=== PATIENT | female | born 1995 | race Caucasian/White ===

== ENCOUNTER 2025-06-07 16:51 | Emergency (ER) | payer OTHER ==
[2025-06-07 17:44] LABS: Absolute Lymphocytes (CBC) 2.5 K/uL (0.7-4.9); Hematocrit 41.6 % (36.0-45.0); Hemoglobin 14.3 g/dL (12.0-15.0); MCH 31.1 pg (27.0-35.0); MCHC 34.4 g/dL (32.0-36.0); MCV 90.4 fL (80-100); MPV 7.5 fL (7.6-11.3); Nucleated RBC Absolute Count 0.0 (0-0); Nucleated Red Blood Cells % 0.0 % (0-0); RBC Red Blood Cell Count 4.60 M/uL (3.86-4.86); White Blood Count 10.80 thou/uL (4.3-10.9)
[2025-06-07 18:04] LABS: Anion Gap 8.5 mEq/L (5.0-15.0); BUN Blood Urea Nitrogen 14 mg/dL (7-18); Glucose Level 95 mg/dL (74-106); HCG, Quantitative > 1000 mIU/mL (1-3); Potassium 3.5 mEq/L (3.5-5.1)
--- NOTE | 2025-06-07 20:28 | RAD REPORT ---
EXAMINATION: US FIRST TRIMESTER TRANSVAGINAL WITH DOPPLER CLINICAL INDICATION: with pelvic pain TECHNIQUE: Real-time obstetrical ultrasonography of the maternal pelvis and first trimester was performed transvaginally. Color and spectral Doppler evaluation of the ovaries was performed. COMPARISON: No prior exam. FINDINGS: The uterus measures 9 x 6 x 6 cm.. A gestational sac within the endometrium not seen 3 cm fluid collection within the cervix. A pole/yolk sac not seen. Right ovary not seen secondary to overlying bowel gas. Left ovary normal in size and echotexture Right and left adnexa unremarkable No significant free fluid IMPRESSION: 3 cm fluid collection within the cervix may represent a blighted ovum with impending . . A le ss likely consideration is that this represents a cervical ectopic . Close follow-up recommended.
--- NOTE | 2025-06-07 20:29 | RAD REPORT ---
EXAMINATION: Pelvis Complete CLINICAL INDICATION: Pelvic pain. TECHNIQUE: Real-time ultrasonography of the pelvis was performed transabdominally.. Color and spectra l Doppler evaluation of the ovaries was performed. COMPARISON: No prior exam. FINDINGS: The uterus measures 9 x 6 x 6 cm.. A gestational sac within the endometrium not seen 3 cm fluid collection within the cervix. A pole/yolk sac not seen. Right ovary not seen secondary to overlying bowel gas. Left ovary normal in size and echotexture Right and left adnexa unremarkable No significant free fluid IMPRESSION: 3 cm fluid collection within the cervix may represent a blighted ovum with impending . . A le ss likely consideration is that this represents a cervical ectopic . Close follow-up recommended.
--- NOTE | 2025-06-07 20:56 | EDPHYS ---
Physician Documentation [facility] Name: Temo Bourgeois Age: 30 yrs Sex: Female : 1995 Arrival Date: 06/07/2025 Time: 16:51 Bed 12 Private MD: ED Physician Jayden Muhammad HPI: 06/07 16:57 This 30 yrs old Female presents to ER via Unassigned with complaints of Vaginal kb Bleeding. 16:57 Patient is a 30-year-old female who presents for vaginal bleeding. States she started kb spotting 4 days ago and the bleeding became heavy about 1 hour ago. Reports she is currently 11 weeks . LMP 03/19/2025. G2, . States her OB is Dr. Yun with [facility]. 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 - Infectious Disease History:: Denies. - Social history:: Smoking status: Patient/guardian denies using tobacco, Stopped _ months ago 2. ROS: 16:58 Constitutional: As per HPI kb Exam: 16:58 Constitutional: This is a well developed, well nourished patient who is awake, alert, kb and in no acute distress. Head/Face: Normocephalic, atraumatic. ENT: Moist Mucous membranes Respiratory: Respirations even and unlabored. No increased work of breathing. Talking in full sentences Abdomen/GI: Soft, non-tender. No distention Skin: Warm, dry with normal turgor. Normal color. MS/ Extremity: Pulses equal, no cyanosis. Neurovascular intact. Full, normal range of motion. Neuro: Awake and alert, GCS 15, oriented to person, place, time, and situation. Vital Signs: 16:56 BP 126 / 83; Pulse 89; Resp 17; Temp 97.8; Pulse Ox 100% on R/A; Weight 56.7 kg; Height dd2 5 ft. 4 in. ; Pain 6/10; 20:13 BP 124 / 64; Pulse 84; Resp 17; Pulse Ox 100% ; cp4 16:56 Body Mass Index 21.46 (56.70 kg, 162.56 cm) dd2 16:56 Pain Scale: Adult dd2 MDM: 16:54 Medical Screening Exam initiated kb 20:44 Data reviewed: vital signs, nurses notes. kb 20:44 Differential diagnosis: threatened Ab, inevitable Ab, complete Ab, ectopic . kb Counseling: I had a detailed discussion with the patient and/or guardian regarding the historical points, exam findings, and any diagnostic results supporting the discharge/admit diagnosis, lab results, radiology results, the need for outpatient follow up, an OB/Gyne specialist, to return to the emergency department if symptoms worsen or persist or if there are any questions or concerns that arise at home. ED course: Pt has follow up scheduled with OB on Monday. 06/07 16:57 Order name: Abo/rh Typing; Complete Time: 18:26 kb 06/07 16:57 Order name: Basic Metabolic Panel; Complete Time: 18:07 kb 06/07 16:57 Order name: CBC with Diff; Complete Time: 17:50 kb 06/07 16:57 Order name: Test, Urine; Complete Time: 17:55 kb 06/07 16:57 Order name: Quantitative Hcg; Complete Time: 18:07 kb 06/07 16:57 Order name: US Transvaginal Ob; Complete Time: 20:29 kb 06/07 18:33 Order name: US Pelvis Complete; Complete Time: 20:30 kb 06/07 16:57 Order name: IV Saline Lock; Complete Time: 17:21 kb 06/07 16:57 Order name: Labs collected and sent; Complete Time: 17:21 kb 06/07 16:57 Order name: NPO; Complete Time: 17:21 kb Administered Medications: No medications were administered Disposition Summary: 06/07/25 20:56 Discharge Ordered Notes: Location: Home kb Condition: Stable kb Diagnosis - Complete or unspecified spontaneous without complication kb Followup: kb - With: Emergency Department - When: As needed - Reason: Worsening of condition Followup: kb - With: Private Physician - When: 2 - 3 days - Reason: Recheck today's complaints, Continuance of care, Re-evaluation by your physician Discharge Instructions: - Discharge Summary Sheet kb - Miscarriage, [id number] kb Forms: - Medication Reconciliation Form kb - Antibiotic Education kb - Prescription Opioid Use kb - Patient Portal Instructions kb - Leadership Thank You Letter kb Addendum: 06/12/2025 07:02 Co-signature as Attending Physician, Jayden Muhammad MD I reviewed the patient's care r n provided by the Advanced Practice Provider and agree with the diagnosis and treatment plan. Signatures: Dispatcher [employer] EDMS Ava Lopez, AUTO SELF SERVICE STATION ATTENDANT-C AUTO SELF SERVICE STATION ATTENDANT-Ckb Jayden Muhammad MD MD rn DAVIS, DIANA, RN RN dd2 Corrections: (The following items were deleted from the chart) 06/07 16:58 16:58 ABO/RH TYPING+BB.LAB.BRZ ordered. EDMS EDMS 16:58 16:58 BASIC METABOLIC PANEL+C.LAB.BRZ ordered. EDMS EDMS 16:58 16:58 CBC+H.LAB.BRZ ordered. EDMS EDMS 16:58 16:58 Test, Urine+UC.LAB.BRZ ordered. EDMS EDMS 16:58 16:58 QUANTITATIVE HCG+C.LAB.BRZ ordered. EDMS EDMS 16:58 16:58 Transvaginal Ob+US.RAD.BRZ ordered. EDMS EDMS
--- NOTE | 2025-06-07 20:56 | ER ---
Nurse's Notes [facility] Name: Temo Bourgeois Age: 30 yrs Sex: Female : 1995 Arrival Date: 06/07/2025 Time: 16:51 Bed 12 Private MD: Diagnosis: Complete or unspecified spontaneous without complication Presentation: 06/07 16:56 Chief complaint: Patient states: SPOTTING SINCE MONDAY AND HEAVY BLEEDING X1 AND dd2 LOWER ABDOMINAL CRAMPING. EPORTS 11 WEEKS . Coronavirus screen: At this time, the client does not indicate any symptoms associated with coronavirus-19. Ebola Screen: No symptoms or risks identified at this time. Initial Sepsis Screen: Does the patient meet any 2 criteria? No. Patient's initial sepsis screen is negative. Does the patient have a suspected source of infection? No. Patient's initial sepsis screen is negative. Risk Assessment: Do you want to hurt yourself or someone else? Patient reports no desire to harm self or others. Onset of symptoms was June 04, 2025. 16:56 Method Of Arrival: Ambulatory dd2 16:56 Acuity: LIZANDRO 3 dd2 Triage Assessment: 17:00 General: Appears in no apparent distress. uncomfortable, Behavior is calm, cooperative, dd2 appropriate for age. Pain: Complains of pain in suprapubic area, right lower quadrant and left lower quadrant. : Reports cramping, in right in left lower quadrant(s) vaginal bleeding that is heavy flow. 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 - Infectious Disease History:: Denies. - Social history:: Smoking status: Patient/guardian denies using tobacco, Stopped _ months ago 2. Screenin:03 [facility] ED Fall Risk Assessment (Adult) History of falling in the last 3 months, af3 including since admission No falls in past 3 months (0 pts) Confusion or Disorientation No (0 pts) Intoxicated or Sedated No (0 pts) Impaired Gait No (0 pts) Mobility Assist Device Used No (0 pt) Altered Elimination No (0 pt) Score/Fall Risk Level 0 - 2 = Low Risk Oriented to surroundings, Maintained a safe environment, Educated pt \T\ family on fall prevention, incl call for assistance when getting out of bed. Abuse screen: Denies threats or abuse. Denies injuries from another. Nutritional screening: No deficits noted. Tuberculosis screening: No symptoms or risk factors identified. Assessment: 17:31 Reassessment: No changes from previously documented assessment. Patient and/or family ll1 updated on plan of care and expected duration. Pain level reassessed. Patient is alert, oriented x 3, equal unlabored respirations, skin warm/dry/pink. 18:39 General: Appears in no apparent distress. comfortable, well groomed, well developed, af3 Behavior is calm, cooperative, appropriate for age. Neuro: Level of Consciousness is awake, alert, obeys commands, Oriented to person, place, time, situation, Appropriate for age. Cardiovascular: Patient's skin is warm and dry. Respiratory: Airway is patent Respiratory effort is even, unlabored, Respiratory pattern is regular, symmetrical. Vital Signs: 16:56 BP 126 / 83; Pulse 89; Resp 17; Temp 97.8; Pulse Ox 100% on R/A; Weight 56.7 kg; Height dd2 5 ft. 4 in. ; Pain 6/10; 20:13 BP 124 / 64; Pulse 84; Resp 17; Pulse Ox 100% ; cp4 16:56 Body Mass Index 21.46 (56.70 kg, 162.56 cm) dd2 16:56 Pain Scale: Adult dd2 ED Course: 16:53 Patient arrived in ED. am2 16:54 Ava Lopez FNP-C is PHCP. kb 16:54 Jayden Muhammad MD is Attending Physician. kb 17:00 Triage completed. dd2 17:00 Arm band placed on right wrist. dd2 17:20 Flakita Delgadillo, CK is Primary Nurse. ll1 17:28 Radiology exam delayed due to test not completed at this time. mr4 17:30 Test, Urine Sent. ll1 17:30 Quantitative Hcg Sent. ll1 17:30 No provider procedures requiring assistance completed. Initial lab(s) drawn, by sd, ll1 sent to lab. Urine collected: clean catch specimen, cloudy, Amount Voided: 350mL. Inserted saline lock: 22 gauge in right antecubital area, using aseptic technique. Blood collected. Flushed with 10 mL NS. 18:03 Patient has correct armband on for positive identification. Bed in low position. Call af3 light in reach. Provided Education on: call light use . 18:45 US Transvaginal Ob In Process Unspecified. EDMS 19:22 US Pelvis Complete In Process Unspecified. EDMS 21:02 intact, bleeding controlled, No redness/swelling at site. Pressure dressing applied. cp4 Administered Medications: No medications were administered Medication: 18:39 VIS not applicable for this client. af3 Outcome: 20:56 Discharge ordered by . kb 21:02 Discharged to home ambulatory, cp4 21:02 Condition: stable 21:02 Discharge instructions given to patient, family, Instructed on discharge instructions, follow up and referral plans. Demonstrated understanding of instructions, follow-up care, 21:03 Patient left the ED. cp4 Signatures: Dispatcher [employer] EDMS Ava Lopez, TECHNICAL ARCHITECT-C TECHNICAL ARCHITECT-CkNichole Calvo am2 Flakita Delgadillo, RN RN ll1 Laura Strange cp4 Laury Nelson RN RN af3 ODESSA PAGAN RN RN dd2 Martin Estrada mr4
[2025-06-07 21:08] VITALS: TEMP 97.8; O2SAT 100
[2025-06-07 21:10] VITALS: BP 124/64
== END 2025-06-07 21:03 | disposition home or self-care (01) ==
LOC: ER 16:51
DX: O03.9 Complete or unspecified spontaneous abortion without complication (principal)
CPT/HCPCS: 36415; 76817; 76856; 80048; 81025; 84702; 85025; 86900; 86901; 99283